=== PATIENT | female | born 1955 | race Caucasian/White ===

== ENCOUNTER 2017-02-07 13:39 | Inpatient (IN) | payer BC ==
[~2017-02-07 13:39] MED LIST: ALLERGY RELIEF10 MG; ANORO ELLIPTA1 EAC1 INH; ANTI GAS; APPLE CIDER VI PO; ASPIRIN325 M3 PO; ASTELIN137 MCG; ATARAX50 MG; AZELASTINE137 MCG/01; BYSTOLIC5 M1 PO; CALCIUM-MAGNES1 EAC3 PO; CLARITIN10 M6 PO; CO Q-10; CO Q-10 WITH L1 EACH PO; COLACE50 MG; CORTEF10 M1 PO; CORTEF10 MG; CORTEF20 M1 PO; CPAP; CRESTOR10 MG/TAB PO; DEPO-MEDROL40 MG/ML; DILAUDID2 M1 PO; DILT-XR180 M1 PO; DILTIAZEM; DULCOLAX10 MG PR; DULCOLAX5 M1 PO; DYAZIDE 37.5-21 EACH PO; DYAZIDE 37.5/251 CAP; ESTRACE1 M3 PO; FISH OIL 1,2001 EAC5 PO; FLUOCINONIDE15 GM TOP; FORADIL12 MCG; GAS RELIEF125 M4 PO; GAS-X125 M1 PO; GLUCOSAMINE &1 EAC1 PO; HYDROCORTISONE IV; K-DUR20 MEQ; LASIX20 M1 PO; LEVOXYL25 MCG; LEVSIN0.125 M1 PO; MAXALT MLT10 MG PO; MAXALT MLT5 MG/TAB; METROGEL60 GM TOP; METROPROLOL; MILK OF MAGNESIA PO; MULTIVITAMIN W/1 T; MULTIVITAMINS1 EAC7 PO; NEXIUM40 M1 PO; NEXIUM40 MG; NORCO 10-325 T1 EACH PO; ORUVAIL; OSTEO-BIFLEX; PEPCID20 M1 PO; POTASSIUM CHLO20 ME3 PO; PREMARIN0.625 MG; PROVASTATIN SODIUM; PULMICORT FLEX90 MCG INH; PULMICORT0.5 MG/2 M; SINGULAIR10 M1 PO; SINGULAIR10 MG; SKELAXIN800 M3 PO; SKELAXIN800 MG; SOMA350 M1 PO; SOMA350 MG; SYNTHROID100 MC1 PO; TOBRADEX EYE DRO5 ML; TOBREX3.5 G1 EACH EYE; TOBREX5 M1 EACH EYE; TYLENOL EXTRA500 M1 PO; TYLENOL EXTRA500 MG; ULTRAM50 M1 PO; VALTREX1000 M1 PO; VALTREX500 MG; VERAMYST10 G1; VERAMYST10 GM; VISTARIL25 M1 PO; VITAMIN D350000 UNI1 PO; VITAMIN D50000 UNIT; XOPENEX0.31 MG/3; XOPENEX1.25 MG/2 INH; ZANAFLEX4 M; ZANAFLEX4 M2 PO; ZANAFLEX4 M3 PO; ZOFRAN ODT8 MG PO; ZOFRAN4 MG; [UNRECOGNIZED DRUG - OTHER]; [UNRECOGNIZED DRUG - OTHER]; [UNRECOGNIZED DRUG - OTHER]; [UNRECOGNIZED DRUG - OTHER] IV
[2017-02-07] MEDS ORDERED: VITAMIN D250000 UNI1 PO (14:43)
[2017-02-07] MEDS ORDERED: FLEXAMIN PO (14:44)
[2017-02-07] MEDS ORDERED: SILVADENE20 G1 TP (14:46)
[2017-02-07 17:22] LABS: BASO % 0.1 % (0-2); EOS % 0.2 % (0-7); HCT-HEMATOCRIT 36.7 % (34.0-49.0); HGB-HEMOGLOBIN 12.1 gm/dl (12.0-15.5); IMMATURE GRANULOCYTES ABSOLUTE 0.03 tho/cmm (0-0.03); IMMATURE GRANULOCYTES PERCENT 0.2 % (0-0.3); LYMPH % 8.6 % (20-45); LYMPH ABSOLUTE COUNT 1.1 tho/cmm (0.8-4.5); MCH (MEAN CORPUSCULAR HGB) 32.1 pg (28.0-32.0); MCV (MEAN CELL VOLUME) 97.3 fl (82.0-96.0); MEAN PLATELET VOLUME 8.8 cmc (9.4-12.4); MONO % 6.2 % (0-12); MONOCYTE ABSOLUTE COUNT 0.8 tho/cmm (0.0-1.2); NEUTROPHIL ABSOLUTE COUNT 11.2 tho/cmm (1.6-8.0); NEUTROPHIL-AUTOMATED 11.2 tho/cmm (1.6-8.0); NEUTROPHILS % 84.7 % (40-80); PLATELET COUNT 273 tho/cmm (150-450); RED BLOOD COUNT 3.77 mil/cmm (4.00-5.20); WHITE BLOOD COUNT 13.2 tho/cmm (4.0-10.0)
[2017-02-07 17:24] LABS: URINE BILIRUBIN NEGATIVE (NEG); URINE BLOOD NEGATIVE (NEG); URINE GLUCOSE (UA) NEGATIVE (NEG); URINE KETONE NEGATIVE (NEG); URINE LEUKOCYTE ESTERASE NEGATIVE (NEG); URINE NITRITE NEGATIVE (NEG); URINE PROTEIN NEGATIVE (NEG); URINE SPECIFIC GRAVITY 1.015 (1.003-1.030)
[2017-02-07 17:25] LABS: URINE APPEARANCE HAZY; URINE COLOR YELLOW
[2017-02-07 17:28] LABS: INR 1.1 INR (0.9-1.1); PROTHROMBIN TIME 12.5 SECONDS (9.0-13.6)
[2017-02-07 17:32] LABS: URINE AMORPHOUS 2+
[2017-02-07 17:33] LABS: URINE RBC 0 /[HPF] (0-5); URINE WBC 0-1 /[HPF] (0-5)
[2017-02-07 17:34] LABS: URINE BACTERIA 1+
[2017-02-07 17:35] LABS: ANION GAP 11 mmol/L (0-20); BLOOD UREA NITROGEN 13 mg/dl (6-24); CALCIUM 8.9 mg/dl (8.5-10.5); CARBON DIOXIDE-VENOUS 29 mmol/L (22-32); CHLORIDE 103 mmol/l (96-110); CREATININE 0.71 mg/dl (0.50-1.10); GLUCOSE 102 mg/dL (70-110); SODIUM 139 mmol/L (135-145); eGFR VALUE FOR BLACK >90 mL/Min
[2017-02-09 06:06] LABS: BASO % 0.1 % (0-2); EOS % 0.3 % (0-7); HCT-HEMATOCRIT 34.7 % (34.0-49.0); HGB-HEMOGLOBIN 10.9 gm/dl (12.0-15.5); LYMPH % 14.5 % (20-45); LYMPH ABSOLUTE COUNT 1.3 tho/cmm (0.8-4.5); MCH (MEAN CORPUSCULAR HGB) 31.3 pg (28.0-32.0); MCHC MEAN CORPUSCULAR HGB CONC 31.4 % (32.0-36.0); MCV (MEAN CELL VOLUME) 99.7 fl (82.0-96.0); MEAN PLATELET VOLUME 9.1 cmc (9.4-12.4); MONO % 10.1 % (0-12); MONOCYTE ABSOLUTE COUNT 0.9 tho/cmm (0.0-1.2); NEUTROPHIL ABSOLUTE COUNT 6.8 tho/cmm (1.6-8.0); NEUTROPHIL-AUTOMATED 6.8 tho/cmm (1.6-8.0); PLATELET COUNT 294 tho/cmm (150-450); RED BLOOD COUNT 3.48 mil/cmm (4.00-5.20)
[2017-02-10 11:13] LABS: C-REACTIVE PROTEIN 5.2 mg/dl (0-0.9)
[2017-02-10 11:30] LABS: PROCALCITONIN <0.05 ng/ml (0.05-0.09)
[2017-02-12 05:10] LABS: BASO % 0.1 % (0-2); HCT-HEMATOCRIT 34.5 % (34.0-49.0); IMMATURE GRANULOCYTES ABSOLUTE 0.02 tho/cmm (0-0.03); IMMATURE GRANULOCYTES PERCENT 0.2 % (0-0.3); LYMPH % 9.4 % (20-45); LYMPH ABSOLUTE COUNT 0.9 tho/cmm (0.8-4.5); MCH (MEAN CORPUSCULAR HGB) 30.9 pg (28.0-32.0); MCHC MEAN CORPUSCULAR HGB CONC 31.9 % (32.0-36.0); MCV (MEAN CELL VOLUME) 96.9 fl (82.0-96.0); MEAN PLATELET VOLUME 8.9 cmc (9.4-12.4); MONOCYTE ABSOLUTE COUNT 0.6 tho/cmm (0.0-1.2); NEUTROPHIL ABSOLUTE COUNT 7.7 tho/cmm (1.6-8.0); NEUTROPHIL-AUTOMATED 7.7 tho/cmm (1.6-8.0); NEUTROPHILS % 84.3 % (40-80); PLATELET COUNT 287 tho/cmm (150-450); RED BLOOD COUNT 3.56 mil/cmm (4.00-5.20); RED CELL DISTRIBUTION WIDTH 13.7 % (12.4-16.4); WHITE BLOOD COUNT 9.2 tho/cmm (4.0-10.0)
[2017-02-12 05:19] LABS: ANION GAP 12 mmol/L (0-20); BLOOD UREA NITROGEN 14 mg/dl (6-24); CALCIUM 8.8 mg/dl (8.5-10.5); CARBON DIOXIDE-VENOUS 29 mmol/L (22-32); CHLORIDE 103 mmol/l (96-110); CREATININE 0.81 mg/dl (0.50-1.10); GLUCOSE 163 mg/dL (70-110); POTASSIUM 3.6 mmol/L (3.7-5.1); SODIUM 140 mmol/L (135-145); eGFR VALUE FOR BLACK >90 mL/Min
[2017-02-12 05:20] LABS: C-REACTIVE PROTEIN 10.7 mg/dl (0-0.9)
[2017-02-13 04:53] LABS: BASO % 0.1 % (0-2); EOS % 0.2 % (0-7); HCT-HEMATOCRIT 33.7 % (34.0-49.0); HGB-HEMOGLOBIN 11.1 gm/dl (12.0-15.5); IMMATURE GRANULOCYTES ABSOLUTE 0.04 tho/cmm (0-0.03); IMMATURE GRANULOCYTES PERCENT 0.5 % (0-0.3); LYMPH % 18.3 % (20-45); LYMPH ABSOLUTE COUNT 1.5 tho/cmm (0.8-4.5); MCH (MEAN CORPUSCULAR HGB) 31.7 pg (28.0-32.0); MCHC MEAN CORPUSCULAR HGB CONC 32.9 % (32.0-36.0); MCV (MEAN CELL VOLUME) 96.3 fl (82.0-96.0); MEAN PLATELET VOLUME 8.7 cmc (9.4-12.4); MONO % 8.3 % (0-12); MONOCYTE ABSOLUTE COUNT 0.7 tho/cmm (0.0-1.2); NEUTROPHILS % 72.6 % (40-80); PLATELET COUNT 305 tho/cmm (150-450); RED CELL DISTRIBUTION WIDTH 13.8 % (12.4-16.4); WHITE BLOOD COUNT 8.2 tho/cmm (4.0-10.0)
[2017-02-14 05:58] LABS: ANION GAP 10 mmol/L (0-20); BLOOD UREA NITROGEN 17 mg/dl (6-24); CALCIUM 8.6 mg/dl (8.5-10.5); CARBON DIOXIDE-VENOUS 29 mmol/L (22-32); CHLORIDE 105 mmol/l (96-110); CREATINE PHOSPHOKINASE (CPK) 40 U/L (21-215); CREATININE 0.74 mg/dl (0.50-1.10); GLUCOSE 105 mg/dL (70-110); POTASSIUM 3.6 mmol/L (3.7-5.1); SODIUM 140 mmol/L (135-145); eGFR VALUE FOR BLACK >90 mL/Min
[2017-02-14 06:15] LABS: C-REACTIVE PROTEIN 2.1 mg/dl (0-0.9)
[2017-02-16 04:51] LABS: HGB-HEMOGLOBIN 11.4 gm/dl (12.0-15.5); PLATELET COUNT 326 tho/cmm (150-450)
[2017-02-16 14:11] LABS: ALB/GLOB RATIO 0.7 (0.8-2.0); ALBUMIN 3.2 g/dl (3.5-5.0); ALKALINE PHOSPHATASE 117 U/L (33-138); ALT/SGPT 38 U/L (12-78); AMYLASE 47 U/L (20-90); ANION GAP 14 mmol/L (0-20); AST/SGOT 20 U/L (10-40); BILIRUBIN,TOTAL 0.3 mg/dl (0-1.5); BLOOD UREA NITROGEN 15 mg/dl (6-24); CALCIUM 9.2 mg/dl (8.5-10.5); CARBON DIOXIDE-VENOUS 26 mmol/L (22-32); CHLORIDE 106 mmol/l (96-110); GLUCOSE 183 mg/dL (70-110); LIPASE 140 U/L (73-393); MAGNESIUM 1.5 mg/dl (1.8-2.6); POTASSIUM 3.6 mmol/L (3.7-5.1); SODIUM 142 mmol/L (135-145); eGFR VALUE FOR BLACK 62 mL/Min
[2017-02-16 14:14] LABS: BASO % 0.3 % (0-2); EOS % 0.6 % (0-7); EOSINOPHIL ABSOLUTE COUNT 0.1 tho/cmm (0.0-0.7); HCT-HEMATOCRIT 37.6 % (34.0-49.0); HGB-HEMOGLOBIN 12.3 gm/dl (12.0-15.5); IMMATURE GRANULOCYTES ABSOLUTE 0.11 tho/cmm (0-0.03); LYMPH % 18.2 % (20-45); MCH (MEAN CORPUSCULAR HGB) 31.6 pg (28.0-32.0); MCHC MEAN CORPUSCULAR HGB CONC 32.7 % (32.0-36.0); MCV (MEAN CELL VOLUME) 96.7 fl (82.0-96.0); MEAN PLATELET VOLUME 9.1 cmc (9.4-12.4); MONO % 7.9 % (0-12); MONOCYTE ABSOLUTE COUNT 0.9 tho/cmm (0.0-1.2); PLATELET COUNT 354 tho/cmm (150-450); RED BLOOD COUNT 3.89 mil/cmm (4.00-5.20); RED CELL DISTRIBUTION WIDTH 13.9 % (12.4-16.4); WHITE BLOOD COUNT 11.2 tho/cmm (4.0-10.0)
[2017-02-17 05:22] LABS: BASO % 0.1 % (0-2); EOS % 0.1 % (0-7); HCT-HEMATOCRIT 33.6 % (34.0-49.0); HGB-HEMOGLOBIN 10.7 gm/dl (12.0-15.5); IMMATURE GRANULOCYTES PERCENT 0.9 % (0-0.3); LYMPH % 11.9 % (20-45); LYMPH ABSOLUTE COUNT 1.3 tho/cmm (0.8-4.5); MCH (MEAN CORPUSCULAR HGB) 30.7 pg (28.0-32.0); MCHC MEAN CORPUSCULAR HGB CONC 31.8 % (32.0-36.0); MCV (MEAN CELL VOLUME) 96.6 fl (82.0-96.0); MEAN PLATELET VOLUME 9.1 cmc (9.4-12.4); MONO % 6.6 % (0-12); MONOCYTE ABSOLUTE COUNT 0.7 tho/cmm (0.0-1.2); NEUTROPHIL ABSOLUTE COUNT 8.7 tho/cmm (1.6-8.0); NEUTROPHIL-AUTOMATED 8.7 tho/cmm (1.6-8.0); NEUTROPHILS % 80.4 % (40-80); PLATELET COUNT 320 tho/cmm (150-450); RED BLOOD COUNT 3.48 mil/cmm (4.00-5.20); RED CELL DISTRIBUTION WIDTH 13.9 % (12.4-16.4); WHITE BLOOD COUNT 10.8 tho/cmm (4.0-10.0)
[2017-02-17 05:34] LABS: ALBUMIN 2.6 g/dl (3.5-5.0); ALT/SGPT 28 U/L (12-78); AST/SGOT 14 U/L (10-40); BLOOD UREA NITROGEN 11 mg/dl (6-24); CALCIUM 7.3 mg/dl (8.5-10.5); CARBON DIOXIDE-VENOUS 20 mmol/L (22-32); CHLORIDE 110 mmol/l (96-110); CREATININE 0.74 mg/dl (0.50-1.10); GLUCOSE 106 mg/dL (70-110); MAGNESIUM 1.7 mg/dl (1.8-2.6); SODIUM 143 mmol/L (135-145); eGFR VALUE FOR BLACK >90 mL/Min
[2017-02-17 05:39] LABS: ALB/GLOB RATIO 0.6 (0.8-2.0); ALKALINE PHOSPHATASE 100 U/L (33-138); BILIRUBIN,TOTAL 0.3 mg/dl (0-1.5); CKMB 0.5 ng/ml (<3.6); CREATINE PHOSPHOKINASE (CPK) 37 U/L (21-215)
[2017-02-17 05:49] LABS: ANION GAP 16 mmol/L (0-20); LIPASE 90 U/L (73-393)
[2017-02-18 05:39] LABS: BASO % 0.4 % (0-2); EOS % 0.8 % (0-7); EOSINOPHIL ABSOLUTE COUNT 0.1 tho/cmm (0.0-0.7); HCT-HEMATOCRIT 34.4 % (34.0-49.0); HGB-HEMOGLOBIN 10.8 gm/dl (12.0-15.5); LYMPH ABSOLUTE COUNT 1.6 tho/cmm (0.8-4.5); MCH (MEAN CORPUSCULAR HGB) 31.5 pg (28.0-32.0); MCHC MEAN CORPUSCULAR HGB CONC 31.4 % (32.0-36.0); MCV (MEAN CELL VOLUME) 100.3 fl (82.0-96.0); MEAN PLATELET VOLUME 9.4 cmc (9.4-12.4); MONO % 10.7 % (0-12); MONOCYTE ABSOLUTE COUNT 0.9 tho/cmm (0.0-1.2); NEUTROPHIL ABSOLUTE COUNT 5.7 tho/cmm (1.6-8.0); NEUTROPHIL-AUTOMATED 5.7 tho/cmm (1.6-8.0); NEUTROPHILS % 69.1 % (40-80); PLATELET COUNT 290 tho/cmm (150-450); RED BLOOD COUNT 3.43 mil/cmm (4.00-5.20); RED CELL DISTRIBUTION WIDTH 14.4 % (12.4-16.4); WHITE BLOOD COUNT 8.3 tho/cmm (4.0-10.0)
[2017-02-18 05:52] LABS: ALB/GLOB RATIO 0.7 (0.8-2.0); ALBUMIN 2.7 g/dl (3.5-5.0); ALKALINE PHOSPHATASE 94 U/L (33-138); ALT/SGPT 27 U/L (12-78); ANION GAP 11 mmol/L (0-20); AST/SGOT 16 U/L (10-40); BILIRUBIN,TOTAL 0.4 mg/dl (0-1.5); BLOOD UREA NITROGEN 15 mg/dl (6-24); CALCIUM 8.5 mg/dl (8.5-10.5); CARBON DIOXIDE-VENOUS 27 mmol/L (22-32); CHLORIDE 109 mmol/l (96-110); CREATININE 0.82 mg/dl (0.50-1.10); GLUCOSE 109 mg/dL (70-110); MAGNESIUM 2.1 mg/dl (1.8-2.6); POTASSIUM 3.1 mmol/L (3.7-5.1); SODIUM 144 mmol/L (135-145); eGFR VALUE FOR BLACK 89 mL/Min
[2017-02-19 05:39] LABS: ANION GAP 12 mmol/L (0-20); BLOOD UREA NITROGEN 11 mg/dl (6-24); CALCIUM 8.3 mg/dl (8.5-10.5); CARBON DIOXIDE-VENOUS 27 mmol/L (22-32); CHLORIDE 111 mmol/l (96-110); CREATININE 0.66 mg/dl (0.50-1.10); GLUCOSE 100 mg/dL (70-110); POTASSIUM 3.4 mmol/L (3.7-5.1); SODIUM 147 mmol/L (135-145); eGFR VALUE FOR BLACK >90 mL/Min
[2017-02-19 05:55] LABS: BASO % 0.1 % (0-2); EOS % 1.2 % (0-7); EOSINOPHIL ABSOLUTE COUNT 0.1 tho/cmm (0.0-0.7); HCT-HEMATOCRIT 31.7 % (34.0-49.0); IMMATURE GRANULOCYTES ABSOLUTE 0.06 tho/cmm (0-0.03); IMMATURE GRANULOCYTES PERCENT 0.9 % (0-0.3); LYMPH % 22.2 % (20-45); LYMPH ABSOLUTE COUNT 1.5 tho/cmm (0.8-4.5); MCHC MEAN CORPUSCULAR HGB CONC 31.5 % (32.0-36.0); MCV (MEAN CELL VOLUME) 98.1 fl (82.0-96.0); MONO % 10.3 % (0-12); MONOCYTE ABSOLUTE COUNT 0.7 tho/cmm (0.0-1.2); NEUTROPHIL ABSOLUTE COUNT 4.5 tho/cmm (1.6-8.0); NEUTROPHIL-AUTOMATED 4.5 tho/cmm (1.6-8.0); NEUTROPHILS % 65.3 % (40-80); PLATELET COUNT 255 tho/cmm (150-450); RED BLOOD COUNT 3.23 mil/cmm (4.00-5.20); RED CELL DISTRIBUTION WIDTH 14.1 % (12.4-16.4); WHITE BLOOD COUNT 6.9 tho/cmm (4.0-10.0)
[2017-02-19 13:46] LABS: ANION GAP 14 mmol/L (0-20); BLOOD UREA NITROGEN 10 mg/dl (6-24); CALCIUM 8.7 mg/dl (8.5-10.5); CARBON DIOXIDE-VENOUS 24 mmol/L (22-32); CHLORIDE 108 mmol/l (96-110); CREATININE 0.78 mg/dl (0.50-1.10); GLUCOSE 100 mg/dL (70-110); POTASSIUM 3.3 mmol/L (3.7-5.1); SODIUM 143 mmol/L (135-145); eGFR VALUE FOR BLACK >90 mL/Min
[2017-02-19] MEDS ORDERED: DILAUDID2 M1 PO (17:31)
[2017-02-19] MEDS ORDERED: CUBICIN500 MG IV (17:31)
[2017-02-19] MEDS ORDERED: SENOKOT-S TABL1 EACH PO (17:39)
[2017-02-19] MEDS ORDERED: EXALGO PO (17:45)
== END 2017-02-19 18:35 | DRG 863 ==
LOC: 5EB 13:39 → PACU 02-11 17:39 → 5EB 02-11 19:15
PROVIDERS: Hospitalist; Internal Medicine; Internal Medicine Infectious Disease; Orthopaedic Surgery; Orthopaedic Surgery Foot and Ankle Surgery; ADMIT Orthopaedic Surgery Orthopaedic Surgery of the Spine
PROC: 05H633Z Insertion of Infusion Device into Left Subclavian Vein, Percutaneous Approach (ICD-10-PCS; 2017-02-07)
PROC: 5A09357 Assistance with Respiratory Ventilation, Less than 24 Consecutive Hours, Continuous Positive Airway Pressure (ICD-10-PCS; 2017-02-07)
PROC: 0J9M00Z Drainage of Left Upper Leg Subcutaneous Tissue and Fascia with Drainage Device, Open Approach (ICD-10-PCS; principal; 2017-02-11)
DX: T81.4XXA Infection following a procedure, initial encounter (principal); E27.40 Unspecified adrenocortical insufficiency; Z68.41 Body mass index [BMI] 40.0-44.9, adult; F11.20 Opioid dependence, uncomplicated; K56.7 Ileus, unspecified; L03.116 Cellulitis of left lower limb; L02.416 Cutaneous abscess of left lower limb; Z96.642 Presence of left artificial hip joint; J45.909 Unspecified asthma, uncomplicated; E03.8 Other specified hypothyroidism; E66.9 Obesity, unspecified; M51.36 Other intervertebral disc degeneration, lumbar region; Z88.1 Allergy status to other antibiotic agents; Z88.0 Allergy status to penicillin; Z88.2 Allergy status to sulfonamides; Z88.8 Allergy status to other drugs, medicaments and biological substances; Z91.018 Allergy to other foods; B95.61 Methicillin susceptible Staphylococcus aureus infection as the cause of diseases classified elsewhere; K58.9 Irritable bowel syndrome, unspecified; K21.9 Gastro-esophageal reflux disease without esophagitis; G47.33 Obstructive sleep apnea (adult) (pediatric); M79.7 Fibromyalgia; Z79.891 Long term (current) use of opiate analgesic; R51 Headache; R07.9 Chest pain, unspecified; E87.6 Hypokalemia; R10.9 Unspecified abdominal pain; R11.0 Nausea
CPT/HCPCS: C1751; C9113; J0878; J1100; J1170; J1335; J1650; J1720; J2060; J2405; J2997; J3010; J3475; J3480; J7030; Q9967